=== PATIENT | male | born 1975 | race Caucasian/White ===

== ENCOUNTER 2020-03-16 01:50 | Emergency (ER) | payer MEDICAID ==
[~2020-03-16] VITALS: Ht 180.3 cm; Wt 75.0 kg
[2020-03-16 01:54] VITALS: BP 126/101
--- NOTE | 2020-03-16 02:00 | NUR ---
Patient requsting a bed for the night and food. Reports he has not eaten for days. further states he rode on a bus from [facility] to [place] because he know the medical system here in [facility] and gets better care. Patient given snack to eat and 3 juices. waiting for MD stephens
[2020-03-16 02:25] LABS: CLARITY,URINE CLEAR (Clear); COLOR,URINE YELLOW (Yellow); GLUCOSE, URINE 250 mg/dl (Neg); KETONES,URINE NEGATIVE (Neg); LEUKOCYTE ESTERASE ,URINE NEGATIVE (Neg); NITRITES, URINE NEGATIVE (Neg); OCCULT BLOOD,URINE NEGATIVE (Neg); PH,URINE 6.5 (4.8-8.0); PROTEIN,URINE NEGATIVE (Neg); UA COLLECTION TYPE NON-SPECIFIED; UROBILINOGEN,URINE 0.2 E.U/dL (0.2-1.0)
[2020-03-16 02:40] LABS: URINE AMPHETAMINE SCREEN NEGATIVE (Neg); URINE BARBITUATE SCREEN NEGATIVE (Neg); URINE BENZODIAZEPINES SCREEN NEGATIVE (Neg); URINE CANNABINOID SCREEN POSITIVE (Neg); URINE COCAINE SCREEN NEGATIVE (Neg); URINE METHADONE SCREEN NEGATIVE (Neg); URINE OPIATE SCREEN NEGATIVE (Neg); URINE PHENCYCLIDINE SCREEN NEGATIVE (Neg)
[2020-03-16] MEDS ORDERED: LORazepam 1 MG tablet PO ONE (03:10)
--- NOTE | 2020-03-16 03:16 | NUR ---
PATIENT LYING PRONE IN BED, OFFERED ATIVAN LEONILA REFUSED TO TAKE MEDICATION. DR WOLFE AWARE NO NEW ORDERS.
--- NOTE | 2020-03-16 04:00 | NUR ---
refused vital signs reports he just wants a place to sleep for the night, has no ride and no where to go.
--- NOTE | 2020-03-16 05:00 | NUR ---
refused vital signs
--- NOTE | 2020-03-16 06:08 | NUR ---
nancy walked out door after dc ready attempt to dc pqatient reports if you send me home I might just walk out into the street.
== END 2020-03-16 06:11 | disposition home or self-care (01) ==
LOC: ER 01:51
DX: F41.9 Anxiety disorder, unspecified (principal); F22 Delusional disorders; Z59.0 Homelessness; Z88.5 Allergy status to narcotic agent
CPT/HCPCS: 80305; 81003; 99283

== ENCOUNTER 2020-03-16 06:32 | Emergency (ER) | payer MEDICAID ==
[~2020-03-16] VITALS: Ht 180.3 cm; Wt 72.7 kg
[2020-03-16] MEDS ORDERED: clonazePAM 1mg tablet PO ONE (07:10)
--- NOTE | 2020-03-16 07:42 | NUR ---
Pt calm and cooperative but is refusing medications at this time. He states he has been off his medications for a long time. He states he is currently calm and does not want medications.
[2020-03-16 07:52] LABS: CLARITY,URINE CLEAR (Clear); COLOR,URINE YELLOW (Yellow); GLUCOSE, URINE 100 mg/dl (Neg); KETONES,URINE NEGATIVE (Neg); LEUKOCYTE ESTERASE ,URINE NEGATIVE (Neg); NITRITES, URINE NEGATIVE (Neg); OCCULT BLOOD,URINE NEGATIVE (Neg); PROTEIN,URINE NEGATIVE (Neg); UA COLLECTION TYPE CLN CATCH MIDSTREAM; UROBILINOGEN,URINE 0.2 E.U/dL (0.2-1.0)
[2020-03-16 07:53] LABS: BASOPHILS # (AUTO) 0.1 X10'3 (0-0.2); BASOPHILS % (AUTO) 1.1 % (0-1); EOSINOPHILS # (AUTO) 0.1 X10'3 (0-0.9); EOSINOPHILS % (AUTO) 1.8 % (0-6); HEMATOCRIT 36.4 % (42.0-52.0); HEMOGLOBIN 12.5 g/dl (14.0-17.9); LYMPHOCYTES # (AUTO) 1.8 X10'3 (1.1-4.8); LYMPHOCYTES % (AUTO) 23.7 % (21-51); MEAN CORPUSCULAR HGB CONC 34.3 g/dL (33.0-36.5); MEAN CORPUSCULAR VOLUME 90.5 FL (78-98); MEAN PLATELET VOLUME 8.4 FL (7.4-10.4); MONOCYTES # (AUTO) 0.5 X10'3 (0-0.9); MONOCYTES % (AUTO) 7.3 % (2-12); NEUTROPHILS % (AUTO) 66.1 % (42-75); PLATELET COUNT 221 X10'3 (140-440); RED BLOOD COUNT 4.03 X10'6 (4.70-6.10); RED CELL DISTRIBUTION WIDTH 14.1 % (11.5-14.5); WHITE BLOOD COUNT 7.5 X10'3 (4.5-11.0)
[2020-03-16 08:14] LABS: ALANINE AMINOTRANSFERASE 51 U/L (12-78); ALBUMIN 3.6 G/DL (3.4-5.0); ALBUMIN/GLOBULIN RATIO 1.3 (1.1-1.5); ALKALINE PHOSPHATASE 95 IU/L (46-116); ANION GAP 7 (8-16); ASPARTATE AMINO TRANSFERASE 29 U/L (10-37); BILIRUBIN,TOTAL 0.2 MG/DL (0.1-1.0); BLOOD UREA NITROGEN 12 MG/DL (7-18); BUN/CREATININE RATIO 10.7 (5.4-32.0); CALCIUM 8.7 MG/DL (8.5-10.1); CHLORIDE 107 MMOL/L (99-107); CREATININE 1.12 MG/DL (0.60-1.10); ETHANOL < 0.010 GM/DL (0.0-0.010); GLUCOSE 126 MG/DL (70-104); POTASSIUM 3.9 MMOL/L (3.5-5.1); SODIUM 142 MMOL/L (135-145); TOTAL CARBON DIOXIDE 28.2 MMOL/L (24-32); TOTAL PROTEIN 6.4 G/DL (6.4-8.2); eGFR 71 ML/MIN
[2020-03-16 08:15] LABS: URINE AMPHETAMINE SCREEN NEGATIVE (Neg); URINE BARBITUATE SCREEN NEGATIVE (Neg); URINE BENZODIAZEPINES SCREEN NEGATIVE (Neg); URINE CANNABINOID SCREEN POSITIVE (Neg); URINE COCAINE SCREEN NEGATIVE (Neg); URINE METHADONE SCREEN NEGATIVE (Neg); URINE OPIATE SCREEN NEGATIVE (Neg); URINE PHENCYCLIDINE SCREEN NEGATIVE (Neg)
--- NOTE | 2020-03-16 08:35 | NUR ---
PACKET FAXED TO [facility]
--- NOTE | 2020-03-16 08:45 | NUR ---
Pt transferred from ER. Pt has been positioned on his left side with his head shoved up againist the headrail and is tearful stating, "I am hungry." Pt given a sandwich and a breakfast tray. Pt ate both the tray and the sandwich. He is calm and cooperative.
[2020-03-16 08:54] VITALS: BP 130/88
--- NOTE | 2020-03-16 09:11 | NUR ---
Pt is now talking to Hugo from . He has eaten and remains calm and cooperative.
--- NOTE | 2020-03-16 09:43 | NUR ---
break nurse: pt resting on right side rr equal and unlabored
--- NOTE | 2020-03-16 11:10 | NUR ---
Pt continues to rest on right side; RR even and unlabored. Pt has been accepted at [facility], [place] by Dr. Harrell pending a negative COVID test.
--- NOTE | 2020-03-16 12:20 | NUR ---
Pt continues to rest calmly on his bed; RR even and unlabored. No complaints and no s/s of distress.
--- NOTE | 2020-03-16 13:17 | NUR ---
[facility] [employer] TIME 0404
--- NOTE | 2020-03-16 14:32 | NUR ---
[facility] public transit bus driver, Allie. All personal belongings returned to pt per LORIE Herbert. Pt slept the whole time he was here. He ate and went to the BR. He remained calm and cooperative when up to use the restroom.
== END 2020-03-16 14:32 ==
LOC: ER 06:32
DX: R45.851 Suicidal ideations (principal); Z20.828 Contact with and (suspected) exposure to other viral communicable diseases; F15.90 Other stimulant use, unspecified, uncomplicated; F19.90 Other psychoactive substance use, unspecified, uncomplicated; Z72.89 Other problems related to lifestyle; Z60.2 Problems related to living alone; Z56.0 Unemployment, unspecified; Z59.0 Homelessness; Z88.5 Allergy status to narcotic agent
CPT/HCPCS: 36415; 80053; 80305; 80320; 81003; 84443; 85025; 87635; 99285; C9803